=== PATIENT | female | born 1985 | race Caucasian/White ===

== ENCOUNTER 2020-08-10 18:08 | Emergency (ER) | payer OTHER ==
[~2020-08-10] VITALS: Ht 162.6 cm; Wt 121.1 kg
--- NOTE | 2020-08-10 18:15 | NUR ---
[id number], WALKED IN PD STATION W/ SI PLAN TO OD ON PILLS, PARANOID. ON 5150 HOLD FOR DTS. PATIENT A/OX4, BREATHING EVEN AND UNLABORED, NO SOB NOTED, NEEDS ATTENDED, KEPT COMFORTABLE. SITTER AT BEDSIDE FOR SAFETY.
--- NOTE | 2020-08-10 18:30 | NUR ---
PATIENT PLACED ON A 5150 HOLD BY PD.
--- NOTE | 2020-08-10 18:32 | NUR ---
CALLED SECURITY FOR WANDING.
--- NOTE | 2020-08-10 18:35 | NUR ---
PATIENT STS SHE'S UNABLE TO GIVE URINE AT THIS TIME, WATER GIVEN TO THE PATIENT.
[2020-08-10 19:01] LABS: ALANINE AMINOTRANSFERASE 19 U/L (12-78); ALBUMIN 3.1 g/dL (3.4-5.0); ALCOHOL, BLOOD < 3 mg/dL (0-0); ALKALINE PHOSPHATASE 80 U/L (46-116); ASPARTATE AMINOTRANSFERASE 8 U/L (15-37); CALCIUM, SERUM 8.8 mg/dL (8.5-10.1); CARBON DIOXIDE 24 mmol/L (21-32); CHLORIDE 104 mmol/L (98-107); GLUCOSE 125 mg/dL (74-106); POTASSIUM 3.7 mmol/L (3.5-5.1); SODIUM SERUM 139 mmol/L (136-145); TOTAL PROTEIN, SERUM 7.8 g/dL (6.4-8.2); UREA NITROGEN, BLOOD 10 mg/dL (7-18)
[2020-08-10 19:11] LABS: ACETAMINOPHEN < 10 ug/ml (10-30)
--- NOTE | 2020-08-10 19:19 | NUR ---
SPOKE TO PATIENT REGARDING PLAN OF CARE. EXPLAIEND THE IMPORTANCE OF PT PROVIDING US WITH A URINE SAMPLE. PT STATED SHE WILL TRY. PT AMBULATED TO THE RESTROOM WITH STEADY GAIT.
--- NOTE | 2020-08-10 19:35 | NUR ---
URINE WAS COLLECTED AND SENT TO LAB. AWAITING RESULTS.
[2020-08-10 19:38] LABS: APPEARANCE,URINE CLEAR (CLEAR); BILIRUBIN,URINE NEGATIVE (NEGATIVE); BLOOD, URINE TRACE-INTA Ery/uL (NEGATIVE); COLOR,URINE YELLOW (YELLOW); KETONES,URINE NEGATIVE (NEGATIVE); LEUKOCYTE ESTERASE ,URINE NEGATIVE (NEGATIVE); NITRITE, URINE NEGATIVE (NEGATIVE); PROTEIN,URINE NEGATIVE (NEGATIVE); UGLUCOSE NEGATIVE (NEGATIVE); UROBILINOGEN,URINE 0.2 EU/dL (0.2)
--- NOTE | 2020-08-10 19:41 | NUR ---
PT STATED SHE WAS HUNGRY. PROVIDED WITH SANDWHICH AND WATER. VSS.
[2020-08-10 20:01] LABS: BACTERIA,URINE Rare /HPF (None Seen); RBC,URINE 0-2 /HPF (0-2); SQUAMOUS EPITHELIAL CELL,UR Few /HPF (None Seen); WBC,URINE NONE SEEN /HPF (0-3)
[2020-08-10 20:15] LABS: BASOPHILS % (AUTO) 0.2 % (0.0-2.0); EOSINOPHILS % (AUTO) 1.2 % (0.0-6.0); HEMATOCRIT 43 % (33-45); LYMPHOCYTES # (AUTO) 1.5 /CMM (0.8-4.8); LYMPHOCYTES % (AUTO) 17.9 % (20.0-44.0); MEAN CORPUSCULAR HGB CONC 33 g/dl (31.0-36.0); MEAN CORPUSCULAR VOLUME 86 fL (82-100); MONOCYTES # (AUTO) 0.3 /CMM (0.1-1.30); NEUTROPHILS # (AUTO) 6.3 /CMM (1.8-8.9); NEUTROPHILS % (AUTO) 76.7 % (43.0-81.0); PLATELET COUNT (AUTO) 344 /CMM (150-450); RED BLOOD CELL COUNT(AUTO) 4.96 MIL/uL (4.0-5.2); WHITE BLOOD COUNT (AUTO) 8.2 K/uL (4.3-11.0)
[2020-08-10] MEDS ORDERED: ACETAMINOPHEN 325 MG TABLET PO ONE (20:30)
--- NOTE | 2020-08-10 22:00 | NUR ---
COVID SWABBED, SENT TO LAB
[2020-08-11] MEDS ORDERED: METOPROLOL TARTRATE 50 MG TABLET ONE (00:10)
[2020-08-11] MEDS ORDERED: METOPROLOL TARTRATE 25 MG TABLET PO ONE (00:30)
--- NOTE | 2020-08-11 01:42 | NUR ---
Patient is resting comfortably in bed with eyes closed. Easily aroused. VSS
--- NOTE | 2020-08-11 02:15 | NUR ---
CALL FROM NATHALIA CEE. PT ACCEPTED BY DR BERG. UNIT 1. # FOR REPORT
--- NOTE | 2020-08-11 02:44 | NUR ---
[facility] CLOSEST ETA 734AM
--- NOTE | 2020-08-11 02:52 | NUR ---
[facility] ETA [phone]
--- NOTE | 2020-08-11 03:59 | NUR ---
REPORT GIVEN TO ADIN PERKINS FOR [facility]
--- NOTE | 2020-08-11 05:54 | NUR ---
PT IS NOW AWAKE, SPOKE TO HER REGARDING PLAN OF CARE. VSS.
--- NOTE | 2020-08-11 08:17 | NUR ---
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 PATIENT A/OX4, NO RESP DISTRESS NOTED. PATIENT TRANSFERRED TO [facility].
[2020-08-11 08:21] VITALS: BP 114/72
== END 2020-08-11 08:25 ==
LOC: ER 18:12
DX: R45.851 Suicidal ideations (principal); I10 Essential (primary) hypertension; E11.9 Type 2 diabetes mellitus without complications; F20.9 Schizophrenia, unspecified; R51.9 Headache, unspecified; Z20.828 Contact with and (suspected) exposure to other viral communicable diseases
CPT/HCPCS: 36415; 80048; 80076; 80299; 80307 ×2; 80320; 81001; 84702; 85025; 87426; 99285; C9803; 81000-TC; G0480